=== PATIENT | male | born 1945 | race Caucasian/White ===

== ENCOUNTER 2018-11-15 17:03 | Emergency (ER) | payer MEDICARE, MEDICAID ==
[~2018-11-15] VITALS: Ht 182.9 cm; Wt 75.0 kg
[~2018-11-15 17:03] MED LIST: ASPI-41 PO; HYDR-3972 PO; OLOP2.5D OP; PANT40TA4 PO; TRAZ-218 PO; VITA1TAB20 PO
[2018-11-15 17:14] VITALS: BP 139/88
--- NOTE | 2018-11-15 18:11 | NUR ---
SURGERY ON RIGHT LEG AND ALEX WAS PLACED IN HIP. PT FELL YESTERDAY ON RIGHT HIP AND PAIN IS JUST GETTING WORSE.
== END 2018-11-15 19:53 | disposition home or self-care (01) ==
LOC: ER 17:04
DX: M79.604 Pain in right leg (principal); Z98.890 Other specified postprocedural states; Z79.82 Long term (current) use of aspirin; Z79.899 Other long term (current) drug therapy; W10.8XXA Fall (on) (from) other stairs and steps, initial encounter; Y93.89 Activity, other specified; Y92.89 Other specified places as the place of occurrence of the external cause; Y99.8 Other external cause status
CPT/HCPCS: 72170; 73552; 99283